=== PATIENT | male | born 1975 | race Caucasian/White ===

== ENCOUNTER 2021-01-10 09:02 | Emergency (ER) | payer SELFPAY ==
[2021-01-10 09:19] VITALS: BP 169/97; PULSE 98; RESP 18; TEMP 38; O2SAT 96; BMI 34.4
--- NOTE | 2021-01-10 09:29 | PC.PHAR ---
pt states he takes no rx medications-no meds pull up on ext med history
--- NOTE | 2021-01-10 09:38 | XR_ITS ---
WS: [id number] PORTABLE CHEST HISTORY: dyspnea/cough COMPARISON: 07/04/2010 Lungs are clear and well expanded. No pleural effusion or pneumothorax. Cardiac size: Normal. Mediastinum/Aorta: Normal mediastinum. No osseous abnormality seen. XR/XR chest 1V portable [id number] IMPRESSION: Unremarkable portable chest.
--- NOTE | 2021-01-10 09:38 | ED_ITS ---
HPI - COVID General: Chief Complaint: COVID symptoms Stated Complaint: Covid+ per home test, SOB, Fever Time Seen by Provider: 01/10/21 09:18 Triage information: Has fever, cough or shortness of breath . Exposure to COVID + person last 14 days History of Present Illness: HPI Narrative: 45-year-old male who presents to the emergency room with complaints of shortness of breath and fever. Patient tested positive for Covid last week with a home Covid test approximately 6 days ago. He has had anosmia fever myalgias shortness of breath with exertion nonproductive cough and diarrhea. MD complaint: known COVID positive (Home test) Prior covid testing: yes, results known Prior testing date: 01/05/21 COVID 19 common symptoms: positive fever(s), chills, cough, non-productive cough, dyspnea, fatigue, body aches, loss of sense of smell and/or taste, throat pain, nasal congestion, nausea, vomiting and diarrhea COVID 19 other sytmptoms: negative chest pain or requiring oxygen Onset (ago): day(s) (9) Severity: mild Pertinent comorbid conditions: hypertension Treatment prior to arrival: acetaminophen COVID Results: Nasal/Oral Coronavirus 2019 PCR Pending 01/10/21 09:54 01/10/21 Review of Systems Const: Reports: fever(s), chills, body aches and fatigue ENMT: Reports: throat pain and nasal congestion Card: Denies: chest pain, edema, dyspnea on exertion or orthopnea Resp: Reports: dyspnea and non-productive cough GI: Reports: nausea, vomiting and diarrhea : Denies: flank pain, dysuria, urinary frequency or urinary urgency Skin/Breast: Denies: rash or pruritus Physical Exam Const: COMMON NORMALS: no acute distress GENERAL APPEARANCE: cooperative and comfortable ORIENTATION/CONSCIOUSNESS: Yes awake, Yes oriented to person, Yes oriented to place and Yes oriented to time HENMT: COMMON NORMALS: normocephalic, atraumatic, hearing grossly normal bilaterally, external ears normal, EAC's normal, TM's normal bilaterally, Normal nasal mucous membranes and turbinates present, moist oral mucous membranes and oropharynx normal HEAD & SCALP: normocephalic and atraumatic NOSE: Normal nasal mucous membranes and turbinates present EXTERNAL EAR: Yes external ears normal EXTERNAL AUDITORY CANAL: EAC's normal TYMPANIC MEMBRANE: TM's normal bilaterally Eye: COMMON NORMALS: Equal, round and reactive pupils present, EOMs intact bilaterally, conjunctivae normal and no scleral icterus CONJUNCTIVA: Yes conjunctivae normal PUPIL: Yes Equal, round and reactive pupils present Neck/C-Spine: COMMON NORMALS: no JVD Resp: COMMON NORMALS: normal respiratory effort, No retractions, No use of accessory muscles and clear to auscultation bilaterally AUSCULTATION: clear to auscultation bilaterally Cardio: COMMON NORMALS: no JVD, regular rate, regular rhythm and No murmurs present (Cardio) RATE: regular rate RHYTHM: regular rhythm GI: COMMON NORMALS: Soft to palpation and No hepatosplenomegaly present AUSCULTATION: Yes normoactive bowel sounds PALPATION: Yes Soft to palpation, No Tenderness to palpation present (GI), No Guarding due to palpation present (GI) and Yes No hepatosplenomegaly present Extremity: COMMON NORMALS: normal to inspection, capillary refill normal, no clubbing, cyanosis or edema, no calf tenderness and no pedal edema Neuro: SENSORIUM/ORIENTATION: Yes oriented to person, Yes oriented to place and Yes oriented to time Skin: COMMON NORMALS: no rashes or lesions noted GENERAL SKIN EXAM: no rashes or lesions noted Course Vital Signs: Vital signs: Vital Signs Temperature 99.4 F 01/10/21 10:08 Pulse Rate 104 H 01/10/21 10:08 Respiratory Rate 18 01/10/21 10:08 Blood Pressure 139/84 01/10/21 10:08 Pulse Oximetry 95 01/10/21 10:08 MDM - COVID MDM Narrative: Medical decision making narrative: Mild Covid symptoms. Patient is self treated with Tylenol and ibuprofen appropriately. No further intervention needed vital signs are good maintaining good oxygen saturations chest x-ray is unremarkable. He is not having any chest pain will discharge patient home Covid PCR is pending he would be a potential candidate for monoclonal antibodies however we may be up against the limit of 10 days for the time we can get it scheduled he would like to proceed with that if he has a positive PCR. COVID Results: Nasal/Oral Coronavirus 2019 PCR Pending 01/10/21 09:54 01/10/21 Discharge Plan Discharge Patient Disposition: Home Clinical Impression: COVID-19 Condition: Stable Prescriptions: No Action Tylenol Ex Str Rapid Release 500 mg Tablet 500 - 1,000 mg PO Q4H PRN (Reason: Pain) RF: 0 ibuprofen 200 mg Tablet 400 mg PO Q4H PRN (Reason: Pain) RF: 0 Discharge Orders: Discharge ED (Routine); Ordered 01/10/21 Ordered By: Monty Cavazos Referrals: Kamron Mar FNP [Primary Care Provider] - Discharge Diet: Usual diet Discharge Activity: Resume usual activity Patient Instructions: Opioid Safety Activity Restrictions/Additional Instructions: Monitor home oxygen saturations. If oxygen saturations fall below 90% while at rest return to emergency room. Coding Level of Care Code ED Mill Roll Operator for Marilee Fwd Exam Comprehensive
[2021-01-10 09:41] VITALS: BP 138/84; PULSE 109; RESP 17; TEMP 37.1; O2SAT 95
[2021-01-10 10:08] VITALS: BP 139/84; PULSE 104; RESP 18; TEMP 37.4; O2SAT 95
[2021-01-10 10:49] VITALS: BP 145/92; PULSE 79; RESP 18; TEMP 37.5; O2SAT 94
[2021-01-12 07:26] LABS: Coronavirus Test Green County Detected
--- NOTE | 2021-01-12 09:40 | PC.NURSE ---
pt called and notified of covid result pt states he is improving
== END 2021-01-10 10:52 | disposition home or self-care (01) ==
PROVIDERS: Emergency Provider Family Medicine; PCP Nurse Practitioner Family
DX: U07.1 COVID-19 (principal)
CPT/HCPCS: 71045; 87635; 99282

== ENCOUNTER 2021-01-14 11:00 | Emergency (ER) | payer SELFPAY ==
[2021-01-14] VITALS (7 sets, daily range): BP systolic 125–167; BP diastolic 78–97; PULSE 73–99; RESP 18–20; TEMP 37.1; O2SAT 92–95; BMI 32.1
--- NOTE | 2021-01-14 11:09 | ED_ITS ---
HPI - SOB/Dyspnea General: Chief Complaint: Shortness of Breath/Dyspnea Stated Complaint: PCP SENT FOR CHEST XRAY COVID + HAS SOB Time Seen by Provider: 01/14/21 11:09 History of Present Illness: HPI Narrative: Mr. Romero is a 45-year-old gentleman without significant past medical history presents to the emergency department due to shortness of breath and rash. He has had shortness of breath symptoms associated with known Covid positive for 10 days. His symptoms include myalgias, arthralgias, fevers, chills, cough, shortness of breath. These overall have been improving with exception of shortness of breath and cough. Over the past 2 days he feels like this is worsened again. Additionally he developed a burning rash 2 days ago on his body. No other symptoms of allergic reaction. He denies new environmental exposures or history of allergies. I ntensity of symptoms overall is moderate. The course is as noted. Symptoms are worse with exertion but do not go with rest. No other specific exacerbating or alleviating factors. He has tried [id number] medications with only mild transient improvement. Review of Systems General: Reports: 10 or more systems reviewed and unremarkable except in HPI and below Physical Exam Narrative: EXAM NARRATIVE: GENERAL/CONSTITUTIONAL -somewhat ill-appearing. No acute distress. Eyes - PERRL, no conjunctival injection ENMT - Atraumatic external nose and ears. Moist mucous membranes. No pharyngeal erythema or exudate. NECK - supple. trachea midline CARDIOVASCULAR - regular rate and rhythm. RESPIRATORY -diminished to auscultation bilaterally. Tachypnea. ABDOMEN/GI - Nontender/Nondistended. MSK - Extremities without obvious deformity or tenderness to palpation SKIN - Warm, Dry. Fine erythematous rash without vesicles on body, no mucosal involvement.. NEURO - alert and appropriately oriented. Moves all extremities equally. Course ED course: - Patient was seen and evaluated by me at bedside - Patient placed on cardiac monitors, IV access obtained - Initial evaluation notable for exam as noted above, nontoxic. -Symptom treatment ordered - Labs notable for no leukocytosis. Metabolic panel with mild dehydration with sodium 132 and chloride 95, ALT mildly elevated likely secondary to Covid. Procalcitonin negative. Compensated blood gas, patient on room air with adequate oxygen saturation despite low PO2 on blood gas - Imaging notable for pneumonia - Upon serial reexamination after treatment the patient was mildly improved - Based on patient history, evaluation, labs, and imaging as interpreted the most likely cause of the patient's condition is COVID-19 pneumonia and mild rash of unclear etiology - The results of ED evaluation were discussed with the patient including prescriptions and/or symptomatic cares (if applicable) including appropriate and responsible use, followup plan, and return precautions. The patient verbalized understanding and felt safe for discharge. - Patient discharged in satisfactory condition. Vital Signs: Vital signs: Vital Signs Temperature 98.7 F 01/14/21 11:12 Pulse Rate 73 01/14/21 16:00 Respiratory Rate 18 01/14/21 16:00 Blood Pressure 145/78 01/14/21 16:00 Pulse Oximetry 93 01/14/21 16:00 MDM - SOB/Dyspnea Medical Records: Attestation: I reviewed the patient's medical records. Lab Data: Attestation: I reviewed the patient's lab results. Labs: Lab Results 01/14/21 01/14/21 01/14/21 11:28 11:28 12:00 WBC 6.1 10^3/uL 10^3/ uL (4.0-10.0) RBC 5.20 10^6/uL 10^6 /uL (4.1-5.3) Hgb 16.0 g/dL g/dL (11.7-16.6) Hct 47.3 % % (42.0-52.0) MCV 91.0 fl fl (80-94) MCH 30.8 pg pg (28.0-34.0) MCHC 33.8 g/dL g/dL (30.0-36.0) RDW 12.3 % % (12.1-15.1) Plt Count 171 10^3/cmm 10^3 /cmm (130-400) MPV 11.6 fL H fL (7.4-10.4) Neut % (Auto) 57.9 % % Lymph % (Auto) 31.8 % % [place] % (Auto) 9.0 % % Eos % (Auto) 0.5 % % Baso % (Auto) 0.3 % % Neut # (Auto) 3.55 10^3/uL 10^3 /uL (1.8-7.7) Lymph # (Auto) 2.0 10^3/uL 10^3/ uL (0.8-4.8) [place] # (Auto) 0.6 10^3/uL 10^3/ uL (0.2-0.9) Eos # (Auto) 0.0 10^3/uL 10^3/ uL (0.0-0.8) Baso # (Auto) 0.0 10^3/uL 10^3/ uL (0.0-0.1) Nucleated RBC % (a uto) 0 % % Nucleated RBCs # 0.0 /100WBC /100W BC Specimen Type Arterial Sample Site Radial, left ABG pH 7.44 (7.35-7.45) ABG pCO2 40.1 mmHg mmHg (35-45) ABG pO2 58.9 mmHg L mmHg (80.0-100.0) ABG HCO3 27.0 mmol/L H mmo l/L (22-26) ABG Base Excess 2.6 mmol/L H mmol /L (-2.0-2.0) Humphrey Test Pos Hematocrit 44.2 % % (42-52) Hgb O2 Saturation 90.2 % L % (95-100) Carboxyhemoglobin 0.7 %THgb %THgb (0.4-20.1) Methemoglobin 0.8 % % (0.4-1.5) Total Hemoglobin 14.4 g/dL g/dL (14-18) O2 Delivery Device Room air Women'S Studies Professor ID Broma Sodium 132 mmol/L L mmol /L (136-145) Potassium 4.2 mmol/L mmol/L (3.5-5.1) Chloride 95 mmol/L L mmol/ L (98-107) Carbon Dioxide 24 mmol/L mmol/L (22-29) Anion Gap 17.2 (5-19) BUN 6 mg/dL mg/dL (6-20) Creatinine 0.8 mg/dL mg/dL (0.7-1.2) GFR Calculation 105.5 mL/min mL/m in (90-130) Glucose 132 mg/dL H mg/dL (65-115) Calculated Osmolal ity 273 mOsm/kg L mOs m/kg (285-295) Calcium 8.2 mg/dL L mg/dL (8.5-10.5) Total Bilirubin 0.7 mg/dL mg/dL (0.15-1.2) AST 40 U/L U/L (0-40) ALT 62 U/L H U/L (0-41) Alkaline Phosphata se 92 IU/L IU/L (40-130) C-Reactive Protein 29.0 mg/L H mg/L (0.0-4.9) Total Protein 7.0 g/dL g/dL (6.6-8.7) Albumin 4.2 g/dL g/dL (3.5-5.2) Globulin 2.8 g/dL g/dL (1.3-4.6) Procalcitonin 0.12 ng/mL ng/mL (0-0.5) EKG Data^: EKG 1: Attestation: I personally reviewed and interpreted this EKG as follows: EKG Interpretation Date: 01/14/21 EKG interpretation time: 11:45 Interpretation: Twelve-lead EKG shows a regular rhythm at a rate of 91. ME interval 171, QRS duration 88, QTc 375. Normal axis. Interpretation: Sinus rhythm. Nonspecific ST segment abnormalities Discharge Plan Discharge Patient Disposition: Home Clinical Impression: COVID-19 Condition: Stable Prescriptions: No Action acetaminophen [Tylenol Ex Str Rapid Release] 500 mg Tablet 500 - 1,000 mg PO Q4H PRN (Reason: Pain) RF: 0 ibuprofen 200 mg Tablet 400 mg PO Q4H PRN (Reason: Pain) RF: 0 Discharge Orders: Discharge ED (Routine); Ordered 01/14/21 Ordered By: Robert Wheatley Referrals: Kamron Mar, ELAYNE [Primary Care Provider] - Discharge Diet: Usual diet Discharge Activity: Resume usual activity and Increase activity as tolerated Patient Instructions: COVID-19 (Coronavirus Disease 2019) (ED) Activity Restrictions/Additional Instructions: Thank you for visiting the emergency department. You were seen and evaluated for Covid symptoms. Based on laboratory studies I believe that Covid is the explanation for all of your symptoms. You received a monoclonal antibody infusion. Please continue symptomatic cares at home. Please follow-up with your primary care provider. Please return to the emergency department for worsening symptoms or anything else that you are concerned about and feel needs emergency department evaluation. Coding Level of Care Code ED Workflow Developer for Marilee Hampton
--- NOTE | 2021-01-14 11:25 | XR_ITS ---
WS: [id number] PORTABLE CHEST HISTORY: covid COMPARISON: 01/08/2021 Lung volumes are decreased. Very subtle areas of increased opacification in the mid and lower LEFT madi ng. No pleural effusion or pneumothorax. Cardiac size: Normal. Mediastinum/Aorta: Normal mediastinum. No osseous abnormality seen. XR/XR chest 1V portable [id number] IMPRESSION: Suspect areas of pneumonitis in the mid and lower LEFT lung.
--- NOTE | 2021-01-14 11:25 | ECG_ITS ---
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
[2021-01-14] MEDS: sodium chloride 0.9% 500 ML 999 ML IV (11:40)
--- NOTE | 2021-01-14 11:40 | PC.NURSE ---
PT PLACED ON CONTINUOUS SPO2, NIBP, AND CM.
[2021-01-14] MEDS: famotidine 20 mg/2 mL INJ 40 MG IVP (11:41)
[2021-01-14] MEDS: dexamethasone 10 mg/mL INJ 6 MG IVP (11:44)
[2021-01-14] MEDS: diphenhydrAMINE 50 mg/mL SDV 1mL 25 MG IVP (11:45)
[2021-01-14 12:13] LABS: ABG PCO2 40.1 mmHg (35-45); ABG PH Result 7.44 (7.35-7.45); Arterial Blood Gas Hematocrit 44.2 % (42-52); Base Excess ABG 2.6 mmol/L (-2.0-2.0); Blood Gas Allen Test Pos; Blood Gas Operator Identificat BROMA; Blood Gas Sample Site Radial, left; Blood Gas Sample Type Arterial; Carboxyhemoglobin 0.7 %THgb (0.4-20.1); HGB O2 Sat 90.2 % (95-100); Methemoglobin 0.8 % (0.4-1.5); Oxygen Device ROOM AIR; PO2 ABG 58.9 mmHg (80.0-100.0); Total Hemoglobin 14.4 g/dL (14-18)
[2021-01-14 12:15] LABS: Basophils % 0.3 %; Eosinophils % 0.5 %; Hematocrit 47.3 % (42.0-52.0); Lymphocytes % 31.8 %; Mean Corpuscular HGB Conc 33.8 g/dL (30.0-36.0); Mean Corpuscular Hemoglobin 30.8 pg (28.0-34.0); Mean Platelet Volume 11.6 fL (7.4-10.4); Monocytes # 0.6 10^3/uL (0.2-0.9); Neutrophils # 3.55 10^3/uL (1.8-7.7); Neutrophils % 57.9 %; Nucleated Red Blood Cells % 0 %; Platelet Count 171 10^3/cmm (130-400); Red Cell Distribution Width 12.3 % (12.1-15.1); White Blood Count 6.1 10^3/uL (4.0-10.0)
[2021-01-14 12:54] LABS: Alanine Aminotransferase 62 U/L (0-41); Albumin Level 4.2 g/dL (3.5-5.2); Alkaline Phosphatase 92 IU/L (40-130); Anion Gap 17.2 (5-19); Aspartate Amino Transferase 40 U/L (0-40); Blood Urea Nitrogen 6 mg/dL (6-20); Calcium 8.2 mg/dL (8.5-10.5); Carbon Dioxide 24 mmol/L (22-29); Chloride 95 mmol/L (98-107); Globulin 2.8 g/dL (1.3-4.6); Glomerular Filtration Rate 105.5 mL/min (90-130); Glucose 132 mg/dL (65-115); Osmolality Calculated 273 mOsm/kg (285-295); Potassium 4.2 mmol/L (3.5-5.1); Procalcitonin 0.12 ng/mL (0-0.5); Sodium 132 mmol/L (136-145); Total Bilirubin 0.7 mg/dL (0.15-1.2)
== END 2021-01-14 16:24 | disposition home or self-care (01) ==
PROVIDERS: Emergency Provider Emergency Medicine; PCP Nurse Practitioner Family
DX: U07.1 COVID-19 (principal); R21 Rash and other nonspecific skin eruption
CPT/HCPCS: 36600; 71045; 80053; 82805; 84145; 85025; 86140; 93005; 96365; 96375; 99284; J1100; J1200; J3490; J7040

== ENCOUNTER 2023-05-15 06:54 | Emergency (ER) | payer SELFPAY ==
[2023-05-15 07:11] VITALS: BP 159/113; PULSE 81; RESP 20; TEMP 36.5; O2SAT 96
[2023-05-15] MEDS: morphine 4 mg/mL SDV 1 mL IVP ×2 (07:23→08:44)
[2023-05-15] MEDS: orphenadrine 30 mg/mL Inj 2 mL 60 MG IM (07:24)
[2023-05-15] MEDS: dexamethasone 10 mg/mL INJ IM (07:25)
[2023-05-15] MEDS: ketorolac 30 mg/mL INJ IVP (07:27)
--- NOTE | 2023-05-15 07:28 | W.ED.GENADLT ---
HPI - General Adult General: Chief complaint: General Medical Stated complaint: back pain, left side abd pain Time Seen by Provider: 05/15/23 06:58 Source: patient Mode of arrival: ambulatory History of Present Illness: 48-year-old male presents emergency room planing left-sided back pain he was seen earlier this week by a chiropractor and treatment. He states his pain is emanating from his kidney denies dysuria frequency urgency no hematuria. He has worsening of pain with bending or twisting motions. Has some discomfort that radiates into the proximal portion of the left thigh. No saddle paresthesias no fecal incontinence or urinary retention Onset (ago): hour(s) Associated symptoms: Deny chest pain, confusion, cough, diaphoresis, decreased appetite, dyspnea, fevers/chills, headache(s), malaise, nausea, rash, palpitations, seizures, short of breath, syncope, vomiting or weakness Treatments prior to arrival: none Review of Systems Const: Denies: fever(s), chills, body aches, change in appetite, fatigue, malaise or diaphoresis ENMT: Denies: throat pain, ear or mastoid pain, nasal discharge or nasal congestion Card: Denies: chest pain, palpitations, edema, syncope, dyspnea on exertion or orthopnea Resp: Denies: dyspnea, productive cough or non-productive cough GI: Denies: abdominal pain, nausea, vomiting, hematemesis, coffee ground emesis, diarrhea, constipation, bloating, hematochezia or melena : Denies: flank pain, dysuria, urinary frequency or urinary urgency Musc: Reports: back pain Skin/Breast: Denies: rash or pruritus Neuro: Denies: headache(s) or confusion Physical Exam Const: COMMON NORMALS: no acute distress GENERAL APPEARANCE: cooperative and comfortable ORIENTATION/CONSCIOUSNESS: Yes awake, Yes oriented to person, Yes oriented to place and Yes oriented to time HENMT: COMMON NORMALS: normocephalic, atraumatic, hearing grossly normal bilaterally, external ears normal, EAC's normal, TM's normal bilaterally, Normal nasal mucous membranes and turbinates present, moist oral mucous membranes and oropharynx normal HEAD & SCALP: normocephalic and atraumatic NOSE: Normal nasal mucous membranes and turbinates present EXTERNAL EAR: Yes external ears normal EXTERNAL AUDITORY CANAL: EAC's normal TYMPANIC MEMBRANE: TM's normal bilaterally Eye: COMMON NORMALS: Equal, round and reactive pupils present, EOMs intact bilaterally, conjunctivae normal and no scleral icterus CONJUNCTIVA: Yes conjunctivae normal PUPIL: Yes Equal, round and reactive pupils present Neck/C-Spine: COMMON NORMALS: full ROM, no lymphadenopathy, supple and no JVD Lymph: LYMPHATIC: no lymphadenopathy noted and no lymphedema noted Resp: COMMON NORMALS: normal respiratory effort, No retractions, No use of accessory muscles and clear to auscultation bilaterally AUSCULTATION: clear to auscultation bilaterally Cardio: COMMON NORMALS: no JVD, regular rate, regular rhythm and No murmurs present (Cardio) RATE: regular rate RHYTHM: regular rhythm GI: COMMON NORMALS: Soft to palpation and No hepatosplenomegaly present AUSCULTATION: Yes normoactive bowel sounds PALPATION: Yes Soft to palpation, No Tenderness to palpation present (GI), No Guarding due to palpation present (GI) and Yes No hepatosplenomegaly present Extremity: COMMON NORMALS: normal to inspection, capillary refill normal, no clubbing, cyanosis or edema, no calf tenderness and no pedal edema Neuro: SENSORIUM/ORIENTATION: Yes oriented to person, Yes oriented to place and Yes oriented to time Skin: COMMON NORMALS: no rashes or lesions noted GENERAL SKIN EXAM: no rashes or lesions noted Course Vital Signs: Vital signs: Vital Signs Temperature 97.7 F 05/15/23 12:02 Pulse Rate 71 05/15/23 12:02 Respiratory Rate 16 05/15/23 12:02 Blood Pressure 150/98 05/15/23 12:02 Pulse Oximetry 91 05/15/23 12:02 Oxygen Delivery Me thod Room Air 05/15/23 11:13 [facility] - General Adult Medical Decision Making Patient has left sided back pain appears very muscular in nature he is exacerbation with movement hesitation to twist or bend due to pain. No dysuria urgency or frequency. Urine did not show any acute hematuria his lipase was slightly elevated. His blood glucose was markedly elevated with no negative ketones. He was given IV fluids and insulin did have some improvement. After multiple doses of medications his back pain had improved some. He has no red flag symptoms at this time. Will discharge home. Given his new diagnosis of diabetes do not recommend steroids use diclofenac hydrocodone and tizanidine. Set up to get see a PCP to establish care for his diabetes start him on metformin 500 twice daily will also set him up to see orthopedics for his back pain return if has further problems. Medical Records I reviewed the patient's medical records. Lab Data I reviewed the patient's lab results. 05/15/23 07:18 05/15/23 07:18 Laboratory Results WBC 6.12 10^3/uL (3.29-11.43) 05/15/23 07:18 RBC 5.31 10^6/uL (3.85-5.65) 05/15/23 07:18 Hgb 16.30 g/dL (11.27-16.99) 05/15/23 07:18 Hct 46.4 % (37-53) 05/15/23 07:18 MCV 87.4 fl (82-101) 05/15/23 07:18 MCH 30.7 pg (27-33) 05/15/23 07:18 MCHC 35.1 g/dL (30-55) 05/15/23 07:18 RDW 12.1 % (12.1-15.1) 05/15/23 07:18 Plt Count 190 10^3/cmm (157-399) 05/15/23 07:18 MPV 11.8 fL (7.4-10.4) H 05/15/23 07:18 Neut % (Auto) 60.3 % 05/15/23 07:18 Lymph % (Auto) 31.0 % 05/15/23 07:18 [place] % (Auto) 5.9 % 05/15/23 07:18 Eos % (Auto) 2.0 % 05/15/23 07:18 Baso % (Auto) 0.5 % 05/15/23 07:18 Neut # (Auto) 3.69 10^3/uL (1.8-7.7) 05/15/23 07:18 Lymph # (Auto) 1.9 10^3/uL (0.8-4.8) 05/15/23 07:18 [place] # (Auto) 0.4 10^3/uL (0.2-0.9) 05/15/23 07:18 Eos # (Auto) 0.1 10^3/uL (0.0-0.8) 05/15/23 07:18 Baso # (Auto) 0.0 10^3/uL (0.0-0.1) 05/15/23 07:18 Nucleated RBC % (auto) 0 % 05/15/23 07:18 Nucleated RBCs # 0.0 /100WBC 05/15/23 07:18 Specimen Type Arterial 05/15/23 08:59 Sample Site Brachial, right 05/15/23 08:59 ABG pH 7.40 (7.35-7.45) 05/15/23 08:59 ABG pCO2 43.5 mmHg (35-45) 05/15/23 08:59 ABG pO2 64.0 mmHg (80.0-100.0) L 05/15/23 08:59 ABG PO2/FiO2 Ratio 0 05/15/23 08:59 ABG HCO3 26.9 mmol/L (22-26) H 05/15/23 08:59 ABG O2 Saturation 91.8 05/15/23 08:59 ABG Base Excess 1.7 mmol/L (-2.0-2.0) 05/15/23 08:59 Humphrey Test N/a 05/15/23 08:59 A-a O2 Gradient 4.0 mmHg (5-10) L 05/15/23 08:59 Hematocrit 50.2 % (42-52) 05/15/23 08:59 Hgb O2 Saturation 90.6 % (95-100) L 05/15/23 08:59 Carboxyhemoglobin 0.7 %THgb (0.4-20.1) 05/15/23 08:59 Methemoglobin 0.5 % (0.4-1.5) 05/15/23 08:59 Total Hemoglobin 16.4 g/dL (14-18) 05/15/23 08:59 Sodium 135.0 mmol/L (131-143) 05/15/23 08:59 Potassium 4.3 mmol/L (3.5-5.0) 05/15/23 08:59 Glucose 326.0 mg/dL (70-115) H 05/15/23 08:59 Ionized Calcium 1.2 mmol/L (1.1-1.4) 05/15/23 08:59 O2 Delivery Device Room air 05/15/23 08:59 FiO2 21.0 % 05/15/23 08:59 Cylinder Die Machine Operator ID Amh 05/15/23 08:59 Sodium 135 mmol/L (136-145) L 05/15/23 07:18 Potassium 4.4 mmol/L (3.5-5.1) 05/15/23 07:18 Chloride 98 mmol/L (98-107) 05/15/23 07:18 Carbon Dioxide 28 mmol/L (22-29) 05/15/23 07:18 Anion Gap 13.4 (5-19) 05/15/23 07:18 BUN 11 mg/dL (6-20) 05/15/23 07:18 Creatinine 1.0 mg/dL (0.7-1.2) 05/15/23 07:18 GFR Calculation 80.4 mL/min (90-130) L 05/15/23 07:18 Glucose 307 mg/dL (65-115) H 05/15/23 07:18 POC Glucose 305 mg/dL (70-110) H 05/15/23 10:55 Calculated Osmolality 291 mOsm/kg (285-295) 05/15/23 07:18 Calcium 9.1 mg/dL (8.5-10.5) 05/15/23 07:18 Total Bilirubin 1.5 mg/dL (0.15-1.2) H 05/15/23 07:18 AST 14 U/L (0-40) 05/15/23 07:18 ALT 26 U/L (0-41) 05/15/23 07:18 Alkaline Phosphatase 86 U/L (40-130) 05/15/23 07:18 Total Protein 6.9 g/dL (6.6-8.7) 05/15/23 07:18 Albumin 4.2 g/dL (3.5-5.2) 05/15/23 07:18 Globulin 2.7 g/dL (1.3-4.6) 05/15/23 07:18 Lipase 69 U/L (13-60) H 05/15/23 07:18 Urine Color Yellow (Yellow) 05/15/23 08:26 Urine Appearance Clear (CLEAR) 05/15/23 08:26 Urine pH 5 (5-7) 05/15/23 08:26 Ur Specific [place] 1.030 (1.005-1.030) 05/15/23 08:26 Urine Protein Neg (Negative) 05/15/23 08:26 Urine Glucose (UA) 4+ (Normal) H 05/15/23 08:26 Urine Ketones Negative (Negative) 05/15/23 08:26 Urine Blood Neg (Negative) 05/15/23 08:26 Urine Nitrate Negative (Negative) 05/15/23 08:26 Urine Bilirubin Neg (Negative) 05/15/23 08:26 Urine Urobilinogen Norm mg/dL (Negative) 05/15/23 08:26 Ur Leukocyte Esterase Negative (Negative) 05/15/23 08:26 Serum Ketones Negative (Negative) 05/15/23 07:18 All radiology interpretation(s) finalized by discharge Discharge Plan Discharge Patient Disposition: Home Clinical Impression: Lumbar radiculopathy, Diabetes mellitus Condition: Stable Prescriptions: New tizanidine 4 mg tablet 4 mg PO Q6H PRN (Reason: muscle spasticity) Qty: 20 0RF Rx Instructions: do not exceed 3 doses per 24 hrs hydrocodone-acetaminophen 5-325 mg tablet 1 tab PO Q6H PRN (Reason: pain) Qty: 25 0RF diclofenac sodium 75 mg tablet,delayed release (DR/EC) 75 mg PO Q12H PRN (Reason: pain) Qty: 20 0RF metformin 500 mg tablet 500 mg PO BIDWMEAL Qty: 60 0RF Discontinued ibuprofen 200 mg Tablet 400 mg PO Q4H PRN (Reason: Pain) Discharge Orders: Discharge ED (Routine); Ordered 05/15/23 Ordered By: Monty Cavazos Referrals: Kamron Mar FNP [Primary Care Provider] - Discharge Diet: Usual diet Discharge Activity: Increase activity as tolerated Patient Instructions: Opioid Safety, Pain Management Activity Restrictions/Additional Instructions: You were seen today for low back pain. Incidental finding in the course of your workup of diabetes. Your urine and the CT of the abdomen were normal there was a slight elevation in your lipase but the CT did not show any evidence of inflammation around the pancreas. You be discharged home with diclofenac to use in place of ibuprofen, hydrocodone and tizanidine to use as needed. Case management make arrangements for you to follow-up with orthopedic spine surgery you may need further evaluation including possible MRI. Additionally they will help you establish with a primary care physician to control your diabetes. You were given metformin to start initially for your diabetes. Take 1 pill twice a day Coding Level of Care Code ED [employer]cre[employer] Mechanical for Marilee Hampton
[2023-05-15 08:13] LABS: Basophils % 0.5 %; Eosinophils # 0.1 10^3/uL (0.0-0.8); Hematocrit 46.4 % (37-53); Lymphocytes # 1.9 10^3/uL (0.8-4.8); Mean Corpuscular HGB Conc 35.1 g/dL (30-55); Mean Corpuscular Hemoglobin 30.7 pg (27-33); Mean Corpuscular Volume 87.4 fl (82-101); Mean Platelet Volume 11.8 fL (7.4-10.4); Monocytes # 0.4 10^3/uL (0.2-0.9); Monocytes % 5.9 %; Neutrophils # 3.69 10^3/uL (1.8-7.7); Neutrophils % 60.3 %; Nucleated Red Blood Cells % 0 %; Platelet Count 190 10^3/cmm (157-399); Red Blood Count 5.31 10^6/uL (3.85-5.65); Red Cell Distribution Width 12.1 % (12.1-15.1); White Blood Count 6.12 10^3/uL (3.29-11.43)
[2023-05-15 08:28] VITALS: BP 150/98; PULSE 85; RESP 17; O2SAT 95
[2023-05-15 08:28] LABS: Alanine Aminotransferase 26 U/L (0-41); Albumin Level 4.2 g/dL (3.5-5.2); Alkaline Phosphatase 86 U/L (40-130); Anion Gap 13.4 (5-19); Aspartate Amino Transferase 14 U/L (0-40); Blood Urea Nitrogen 11 mg/dL (6-20); Calcium 9.1 mg/dL (8.5-10.5); Carbon Dioxide 28 mmol/L (22-29); Chloride 98 mmol/L (98-107); Creatinine Clr Calc Pharmacy 111.0976; Globulin 2.7 g/dL (1.3-4.6); Glomerular Filtration Rate 80.4 mL/min (90-130); Glucose 307 mg/dL (65-115); Osmolality Calculated 291 mOsm/kg (285-295); Potassium 4.4 mmol/L (3.5-5.1); Sodium 135 mmol/L (136-145); Total Bilirubin 1.5 mg/dL (0.15-1.2); Total Protein 6.9 g/dL (6.6-8.7)
[2023-05-15 08:31] LABS: Add Urine Microscopic? NO; Charge for UA Resulting for Rev
[2023-05-15 08:37] LABS: Protein Urine Neg (Negative); Urine Appearance Clear (CLEAR); Urine Color Yellow (Yellow); pH Urine 5 (5-7)
[2023-05-15 08:38] LABS: Bilirubin Urine Neg (Negative); Blood Urine Neg (Negative); Glucose Urine UA 4+ (Normal); Ketones Urine Negative (Negative); Leukocyte Esterase Urine Negative (Negative); Nitrate Urine Negative (Negative); Urobilinogen Urine Norm (Negative)
[2023-05-15 08:44] VITALS: RESP 16
[2023-05-15 09:09] LABS: Ketone (Acetest) Serum Negative (Negative)
[2023-05-15 09:11] LABS: Glucose Point of Care 304 mg/dL (70-110)
[2023-05-15 09:11] LABS: ABG PCO2 43.5 mmHg (35-45); Arterial Blood Gas Hematocrit 50.2 % (42-52); Base Excess ABG 1.7 mmol/L (-2.0-2.0); Blood Gas Operator Identificat AMH; Blood Gas Sample Site Brachial, right; Blood Gas Sample Type Arterial; Carboxyhemoglobin 0.7 %THgb (0.4-20.1); HCO3 ABG 26.9 mmol/L (22-26); HGB O2 Sat 90.6 % (95-100); Ionized Calcium Level - ABG 1.2 mmol/L (1.1-1.4); Methemoglobin 0.5 % (0.4-1.5); Oxygen Device ROOM AIR; Oxygen Saturation ABG 91.8; PO2 FiO2 Ratio Arterial Blood 0; Potassium Level - ABG 4.3 mmol/L (3.5-5.0); Total Hemoglobin 16.4 g/dL (14-18)
[2023-05-15 09:18] LABS: Lipase 69 U/L (13-60)
[2023-05-15] MEDS: sodium chloride 0.9% 1,000 ML 999 ML IV (09:34)
[2023-05-15] MEDS: insulin regular-human 100 units/1 mL 10 UNIT SUBCUT (09:37)
[2023-05-15 09:48] VITALS: PULSE 73; O2SAT 94
--- NOTE | 2023-05-15 09:53 | CT_ITS ---
WS: [id number] CT ABDOMEN PELVIS TECHNIQUE: Contrast-enhanced CT of the abdomen and pelvis with coronal and sagittal reformatted image s. CLINICAL INFORMATION: abd pain COMPARISON: None. DLP: 994.[address] scans at [facility] use at least one of these dose optimization techniques: automated e xposure control; mA and/or kV adjustment per patient size (includes targeted exams where dose is matc hed to clinical indication); or iterative reconstruction. FINDINGS: Mild diffuse fatty infiltration of the liver. Normal portal vein and splenic vein. Normal spleen. Nor mal GE junction. Small splenule. Slight atelectasis in the lung bases. Adrenal glands are normal. Nor mal caliber abdominal aorta. Celiac and SMA are patent. Normal renal parenchymal enhancement. No hydr onephrosis. Tiny fat-containing umbilical hernia. Normal appendix. IMPRESSION: 1. No hydronephrosis in either kidney. No obstructing renal or ureteral calculi. 2. Diffuse fatty infiltration of the liver. 3. Sigmoid diverticulosis. No evidence of acute diverticulitis. 4. Small fat-containing umbilical hernia.
[2023-05-15 10:19] LABS: Glucose Point of Care 285 mg/dL (70-110)
[2023-05-15] MEDS: iohexol 350 mg/mL 500 mL Btl (per mL) IV (10:25)
[2023-05-15] MEDS: morphine 4 mg/mL SDV 1 mL 2 MG IVP (10:47)
[2023-05-15 10:59] LABS: Glucose Point of Care 305 mg/dL (70-110)
[2023-05-15 11:13] VITALS: PULSE 71; O2SAT 91
[2023-05-15 12:02] VITALS: BP 150/98; PULSE 71; RESP 16; TEMP 36.5; O2SAT 91
--- NOTE | 2023-05-16 08:35 | DCPLANNER ---
Message sent to Alice Delgado and wp family to establish pcp
--- NOTE | 2023-05-16 08:37 | DCPLANNER ---
message sent to [facility] for follow up
== END 2023-05-15 12:04 | disposition home or self-care (01) ==
PROVIDERS: Emergency Provider Family Medicine; PCP Nurse Practitioner Family
DX: M54.16 Radiculopathy, lumbar region (principal); E11.9 Type 2 diabetes mellitus without complications
CPT/HCPCS: 36416; 36600; 74177; 80051; 80053; 81003; 82009; 82330; 82805; 82962; 83690; 85025; 96361; 96372; 96374; 96375; 96376; 99285; J1100; J1815; J1885; J2270; J2360; J7030; Q9967